=== PATIENT | male | born 1970 | race Caucasian/White ===

== ENCOUNTER 2016-11-13 16:27 | Observation (INO) | payer SELFPAY ==
[~2016-11-13] VITALS: Ht 182.9 cm; Wt 145.1 kg
[2016-11-13 16:42] VITALS: BP 124/99
[2016-11-13] MEDS ORDERED: NITROGLYCERIN 0.4 MG TAB SL ONE (16:55)
[2016-11-13] MEDS ORDERED: ASPIRIN 325 MG TAB PO ONE (16:55)
--- NOTE | 2016-11-13 17:00 | NUR ---
46/M PRESENT TO ER C/O CHEST PAIN x2 HOURS AGO ACUTE ONSET. PAIN 10/10 PRESSURE NON-RADIATING. STS HX OF HTN, HYPERLIPIDEMIA, COLON CA, PORT REMOVED 9MONTHS AGO, CHEMO 9MOS AGO. PT TAKING LIPITOR AND ATENOLOL. DENIES N/V/D; SKIN IS PINK/WARM/DRY, GROSS LYMPHEDEMA NOTED TO RIGHT LOWER CALF; AAOX3; PT APPEARS SOB AND ANXIOUS. LUNGS SOUDNDS APPEARED DIMINISHED; HR EVEN AND REGULAR; PT DENIES ANY FEVER OR COUGH AT THIS TIME; PATIENT STATES PAIN OF 10/10 STERNAL TO LEFT CP AT THIS TIME; VSS; PATIENT POSITIONED FOR COMFORT; HOB ELEVATED; BEDRAILS UP X2; BED DOWN. ER MD MADE AWARE OF PT STATUS.
--- NOTE | 2016-11-13 17:20 | NUR ---
LAB at bedside.
[2016-11-13] MEDS ORDERED: ONDANSETRON 4 MG/2 ML VIAL IVP ONE (17:25)
--- NOTE | 2016-11-13 17:27 | NUR ---
X-Ray at bedside.
[2016-11-13] MEDS ORDERED: ONDANSETRON 4 MG/2 ML VIAL ONE (17:29)
[2016-11-13] MEDS ORDERED: ACETAMINOPHEN 325 MG TAB PO PRN (17:30)
[2016-11-13] MEDS ORDERED: NACL 0.9% 1,000 ML IV SCH (17:30)
[2016-11-13] MEDS ORDERED: KETOROLAC 30 MG/ML VIAL IVP ONE (17:30)
[2016-11-13] MEDS ORDERED: HYDROcodone/APAP 5/325 MG 1 TAB TAB PO PRN (17:30)
[2016-11-13] MEDS ORDERED: NITROGLYCERIN 0.4 MG TAB SL PRN (17:30)
[2016-11-13 17:42] LABS: BASOPHILS # (AUTO) 0.1 K/uL (0.00-0.22); BASOPHILS % (AUTO) 1.6 % (0.0-2.0); EOSINOPHILS # (AUTO) 0.2 K/uL (0-0.4); EOSINOPHILS % (AUTO) 2.8 % (0.0-4.0); HEMATOCRIT 43.6 % (36-52); HEMOGLOBIN 14.2 g/dL (12.0-18.0); LYMPHOCYTES # (AUTO) 1.1 K/uL (2.0-11.5); LYMPHOCYTES % (AUTO) 18.1 % (20.5-51.1); MEAN CORPUSCULAR HEMOGLOBIN 28 pg (27-31); MEAN CORPUSCULAR HGB CONC 33 g/dL (33-37); MEAN CORPUSCULAR VOLUME 87 fL (80-94); MONOCYTES # (AUTO) 0.4 K/uL (0.8-1.0); NEUTROPHILS # (AUTO) 4.4 K/uL (1.8-7.7); NEUTROPHILS % (AUTO) 70.5 % (42.2-75.2); PLATELET COUNT (AUTO) 178 K/uL (140-450); RED BLOOD CELL COUNT(AUTO) 5.04 MIL/uL (4.20-6.10); RED CELL DISTRIBUTION WIDTH 13.5 % (11.6-13.7); WHITE BLOOD COUNT (AUTO) 6.2 K/uL (4.8-10.8)
--- NOTE | 2016-11-13 17:55 | NUR ---
Patient will be admitted to care of DR. ASH. Admited to TELE. Will go to room 106-B. Belongings list completed. Report to EVANGELIST VELASQUEZ.
[2016-11-13 18:01] LABS: ANION GAP 15.4 (8-16); CARBON DIOXIDE 24.7 mmol/L (21-32); POTASSIUM 4.1 mmol/L (3.5-5.1)
[2016-11-13 18:05] LABS: PROTHROMBIN TIME 10.2 secs (10.8-13.4)
[2016-11-13] MEDS ORDERED: MORPHINE SULFATE 4 MG/ML SYR IVP ONE (18:05)
[2016-11-13 18:13] LABS: ALBUMIN 3.7 g/dL (3.4-5.0); TOTAL BILIRUBIN 0.3 mg/dL (0.0-1.0)
[2016-11-13] MEDS ORDERED: diphenhydrAMINE 50 MG/ML VIAL IVP ONE (18:15)
--- NOTE | 2016-11-13 18:20 | NUR ---
4MG OF MORHPNINE IVP GIVEN. PT STS SEVERE ITCHING TO IV SITE AND CHEST. DR. GIRON MADE AWARE. NEW ORDER FOR 50 BENADRYL IVP STAT.
[2016-11-13 18:23] LABS: CREATINE KINASE MB 0.3 ng/mL (0-3.6)
[2016-11-13] MEDS ORDERED: diphenhydrAMINE 50 MG/ML VIAL ONE (18:23)
[2016-11-13 18:25] LABS: CHOL/HDL RATIO 6.3 (1-4.5); FREE T4 (FREE THYROXINE) 1.09 ng/dL (0.76-1.46); PHOSPHORUS 2.5 mg/dL (2.5-4.9); THYROID STIMULATING HORMONE 0.36 uIU/mL (0.34-3.74)
[2016-11-13 18:33] VITALS: BP 120/79
--- NOTE | 2016-11-13 18:40 | NUR ---
PATIENT BROUGHT IN BY ER. PATIENT ALERT AND ORIENTED. FOLLOWS COMMANDS. VITALS WNL. ON ROOM AIR 100% SATURATION. C/O CHEST PAIN WILL MEDICATE ORDERED. IV SITE PATENT AND INTACT.
--- NOTE | 2016-11-13 18:50 | NUR ---
PATIENT STATED UNRELIEVED PAIN FROM MS 4MG PER ER NURSE. MD NOTIFIED. NEW ORDERS RECEIVED. WILL MEDICATE WHEN AVAILABLE.
[2016-11-13] MEDS ORDERED: HYDROmorphone 1 MG/ML AMP IVP SCH ×2 (19:15→20:30)
--- NOTE | 2016-11-13 19:44 | NUR ---
ENDORSED PLAN OF CARE TO NIGHT NURSE AT PT BEDSIDE. NO S/S OF ACUTE DISTRESS NOTED.
--- NOTE | 2016-11-13 19:45 | NUR ---
RECEIVED REPORT FROM DAY SHIFT RN AT BEDSIDE. PT IS STABLE, AAOX4, ON ROOM AIR (PT REFUSES O2, BUT SATURATING AT 100% ON ROOM AIR). PT SKIN IS INTACT, 20 GAUGE IV ON THE LEFT ANTECUBITAL, SALINE LOCKED BECAUSE PT REFUSES IV FLUIDS. PT C/O PAIN, PT WAS MEDICATED BY DAY SHIFT RN. DISCUSSED PLAN OF CARE WITH PT, PT VERBALIZED UNDERSTANDING. BED IN LOW POSITION, CALL LIGHT WITHIN REACH. WILL CONTINUE TO MONITOR.
[2016-11-13 20:00] LABS: APPEARANCE,URINE CLEAR (CLEAR); BILIRUBIN,URINE NEGATIVE (NEGATIVE); BLOOD, URINE NEGATIVE (NEGATIVE); COLOR,URINE YELLOW (YELLOW); LEUKOCYTE ESTERASE ,URINE NEGATIVE (NEGATIVE); NITRITE, URINE NEGATIVE (NEGATIVE); UGLUCOSE NEGATIVE (NEGATIVE)
[2016-11-13 20:06] LABS: BARBITURATE, URINE NEG. ng/ml (NEG <=200); BENZODIAZEPINE, URINE NEG. ng/mL (NEG <=200); CANNABINOID, URINE NEG. ng/mL (NEG <=50); COCAINE, URINE NEG. ng/mL (NEG <=300); OPIATE, URINE NEG. ng/mL (NEG <=2000); PHENCYCLIDINE SCREEN,URINE NEG. ng/mL (NEG <=25)
[2016-11-13] MEDS ORDERED: FAMOTIDINE 20 MG/2 ML VIAL IV SCH (20:30)
[2016-11-13] MEDS ORDERED: METOPROLOL 25 MG TAB PO SCH (21:00)
[2016-11-13] MEDS ORDERED: DOCUSATE SODIUM 100 MG GELCAP PO SCH (21:00)
--- NOTE | 2016-11-13 21:00 | NUR ---
SPOKE WITH DR POLK ABOUT ORDER FOR DILAUDID BECAUSE PT GOT DILAUDID AT 19:33, SAID IT WAS OK FOR PT TO GET DILAUDID AGAIN. ALSO SPOKE TO HIM ABOUT OBTAINING DIET ORDER, WILL PUT DIET ORDER IN.
--- NOTE | 2016-11-13 22:05 | NUR ---
PT WANTS TO LEAVE HOSPITAL AGAINST MEDICAL ADVICE. AT BEDSIDE TALKING TO HIM ABOUT HIS PLAN OF CARE, PT VERBALIZED UNDERSTANDING BUT PATIENT STILL REFUSES TO STAY BECAUSE HE WANTED HIS "PROBLEMS FIXED RIGHT WHEN HE GOT HERE." EXPLAINED TO PATIENT THAT HE WOULD BE LEAVING AGAINST MEDICAL ADVICE, PT VERBALIZED UNDERSTANDING. TOOK PT IV AND TELE MONITOR OFF, AND PT STATED HE WAS GOING TO GET DRESSED. PT SIGNED AMA PAPER AND LEFT.
[2016-11-14] MEDS ORDERED: ASPIRIN 81 MG TAB.CHEW PO SCH (09:00)
[2016-11-14] MEDS ORDERED: ATORVASTATIN 20 MG TAB PO SCH (09:00)
[2016-11-14] MEDS ORDERED: LISINOPRIL 5 MG TAB PO SCH (09:00)
== END 2016-11-13 22:05 | disposition left against medical advice (07) ==
LOC: MED 16:27 → INTOOBSV 17:20 → MTU 17:20
PROVIDERS: ADMIT Family Medicine; ATTEND Family Medicine
DX: R07.89 Other chest pain (principal)
CPT/HCPCS: 36415; 71010; 80053; 80305; 81003; 82550; 82553; 83036; 83690; 83735; 83880; 84100; 84439; 84443; 84484; 85025; 85379; 85610; 85730; 87081; 87086; 93005; 96374; 96375; 99285; G0378; J1170; J1200; J2270; J2405; J3490; J7030; Q0092; 96376; J1885